=== PATIENT | male | born 1995 | race Caucasian/White ===

== ENCOUNTER 2016-04-20 12:38 | Emergency (ER) | payer OTHER ==
[~2016-04-20] VITALS: Ht 175.3 cm; Wt 55.0 kg
[2016-04-20 12:49] VITALS: BP 128/70; PULSE 94; RESP 18; TEMP 98; O2SAT 97
== END 2016-04-20 14:45 | disposition left against medical advice (07) ==
LOC: NED 12:38
DX: R68.89 Other general symptoms and signs (principal)
CPT/HCPCS: 99281

== ENCOUNTER 2016-05-31 14:19 | Emergency (ER) | payer OTHER ==
[~2016-05-31] VITALS: Ht 172.7 cm; Wt 82.0 kg
[2016-05-31 14:25] VITALS: BP 128/60; PULSE 62; RESP 18; TEMP 98.3; O2SAT 98
--- NOTE | 2016-05-31 14:55 | PD ---
HPI Chief Complaint: Suicide Ideation/Attempt Time Seen by Provider: 14:24 Travel History International Travel<30 days: No Contact w/Intl Traveler<30days: No Traveled to known affect area: No History of Present Illness HPI The patient is a 20-year-old male who presents emergency department via [facility] [place] [employer] as a Ellison act. According to the police affidavit they responded in reference to the patient who is making suicidal threats, however, when they arrived the patient states he would "kill anyone "came into the area. The police affidavit states that the patient apparently had a knife earlier that was removed by people on scene. The patient denies any suicidal or homicidal ideation. The patient does have a history of bipolar affective disorder for which she takes medications, states he took his medicines this morning. The patient denies any hallucinations, delusions, alcohol use, or illicit drug use. Patient denies any suicidal or homicidal ideation. The patient is requesting to have the Ellison act lifted so he can leave. PFSH Past Medical History ADHD: No Blood Disorders: No Bipolar Disorder: Yes Weight (Kg): uk Cancer: No Cardiovascular Problems: No Diabetes: No Diminished Hearing: No Headaches: No Psychiatric: Yes ([employer] POLAR) Immunizations Current: No Migraines: No Seizures: No Thyroid Disease: No Ulcer: No Past Surgical History Appendectomy: No Cholecystectomy: No Other Surgery: No Social History Alcohol Use: No Tobacco Use: Yes (1.5 PPD) Substance Use: Yes (MARIJUANA) Allergies-Medications (Allergen,Severity, Reaction): Coded Allergies: Seafood (Verified Allergy, Unknown, 08/28/13) Uncoded Allergies: Fish (Adverse Reaction, Intermediate, Hives ,Short of breath, 06/28/13) Reported Meds & Prescriptions Reported Meds & Active Scripts Active No Active Prescriptions or Reported Medications Review of Systems Except as stated in HPI: all other systems reviewed are Neg Cardiovascular: No: Chest Pain or Discomfort Respiratory: No: Shortness of Breath Gastrointestinal: No: Nausea, Vomiting, Abdominal Pain Neurologic: No: Dizziness Psychiatric: Positive: Suicidal Ideations (according to the police, patient denies), Mood Disorder (history of bipolar affective disorder), Homicidal Ideation (according to police the patient may, that he would "kill anyone ", but patient denies), No: Substance Abuse Physical Exam Narrative GENERAL: Awake, alert, somewhat angry 20-year-old male who appears his stated age and is in no acute respiratory distress. SKIN: Warm and dry. HEAD: Atraumatic. Normocephalic. EYES: Pupils equal and round. Pupils are 4 mm bilateral and reactive. ENT: No nasal bleeding or discharge. Mucous membranes pink and moist. NECK: Trachea midline. No JVD. CARDIOVASCULAR: Regular rate and rhythm. No murmur appreciated. RESPIRATORY: No accessory muscle use. Clear to auscultation. Breath sounds equal bilaterally. GASTROINTESTINAL: Abdomen soft, non-tender, nondistended. No rebound tenderness. MUSCULOSKELETAL: No obvious deformities. No clubbing. No cyanosis. No edema. NEUROLOGICAL: Awake and alert. No obvious cranial nerve deficits. Motor grossly within normal limits. Normal speech. PSYCHIATRIC: The patient is angry, and using profanity towards nursing staff and security personnel. Data Data Orders Complete Blood Count With Diff (05/31/16 14:30) Comprehensive Metabolic Panel (05/31/16 14:30) Psych Screen (05/31/16 14:30) Drug Screen, Random Urine (05/31/16 14:30) Alcohol (Ethanol) (05/31/16 14:30) Lorazepam Inj (Ativan Inj) (05/31/16 15:45) Haloperidol Inj (Haldol Inj) (05/31/16 15:45) Restraints Violent (05/31/16 15:36) Haloperidol Inj (Haldol Inj) (05/31/16 15:38) Lorazepam Inj (Ativan Inj) (05/31/16 15:38) Diphenhydramine Inj (Benadryl Inj) (05/31/16 16:00) Labs Laboratory Tests Test 05/31/16 05/31/16 14:40 15:00 White Blood Count 7.3 TH/MM3 Red Blood Count 5.04 MIL/MM3 Hemoglobin 15.8 GM/DL Hematocrit 45.3 % Mean Corpuscular Volume 89.8 FL Mean Corpuscular Hemoglobin 31.3 PG Mean Corpuscular Hemoglobin 34.8 % Concent Red Cell Distribution Width 13.8 % Platelet Count 192 TH/MM3 Mean Platelet Volume 8.8 FL Neutrophils (%) (Auto) 57.3 % Lymphocytes (%) (Auto) 31.7 % Monocytes (%) (Auto) 8.3 % Eosinophils (%) (Auto) 2.0 % Basophils (%) (Auto) 0.7 % Neutrophils # (Auto) 4.2 TH/MM3 Lymphocytes # (Auto) 2.3 TH/MM3 Monocytes # (Auto) 0.6 TH/MM3 Eosinophils # (Auto) 0.1 TH/MM3 Basophils # (Auto) 0.0 TH/MM3 CBC Comment DIFF FINAL Differential Comment Sodium Level 142 MEQ/L Potassium Level 3.9 MEQ/L Chloride Level 106 MEQ/L Carbon Dioxide Level 27.9 MEQ/L Anion Gap 8 MEQ/L Blood Urea Nitrogen 9 MG/DL Creatinine 0.89 MG/DL Estimat Glomerular Filtration 109 ML/MIN Rate Random Glucose 86 MG/DL Calcium Level 8.9 MG/DL Total Bilirubin 0.3 MG/DL Aspartate Amino Transf 33 U/L (AST/SGOT) Alanine Aminotransferase 96 U/L (ALT/SGPT) Alkaline Phosphatase 83 U/L Total Protein 7.5 GM/DL Albumin 4.1 GM/DL Ethyl Alcohol Level LESS THAN 3 MG/DL Urine Opiates Screen NEG Urine Barbiturates Screen NEG Urine Amphetamines Screen NEG Urine Benzodiazepines Screen NEG Urine Cocaine Screen NEG Urine Cannabinoids Screen POS MDM Medical Decision Making Medical Screen Exam Complete: Yes Emergency Medical Condition: Yes Medical Record Reviewed: Yes Interpretation(s) Laboratory Tests Test 05/31/16 05/31/16 14:40 15:00 White Blood Count 7.3 TH/MM3 Red Blood Count 5.04 MIL/MM3 Hemoglobin 15.8 GM/DL Hematocrit 45.3 % Mean Corpuscular Volume 89.8 FL Mean Corpuscular Hemoglobin 31.3 PG Mean Corpuscular Hemoglobin 34.8 % Concent Red Cell Distribution Width 13.8 % Platelet Count 192 TH/MM3 Mean Platelet Volume 8.8 FL Neutrophils (%) (Auto) 57.3 % Lymphocytes (%) (Auto) 31.7 % Monocytes (%) (Auto) 8.3 % Eosinophils (%) (Auto) 2.0 % Basophils (%) (Auto) 0.7 % Neutrophils # (Auto) 4.2 TH/MM3 Lymphocytes # (Auto) 2.3 TH/MM3 Monocytes # (Auto) 0.6 TH/MM3 Eosinophils # (Auto) 0.1 TH/MM3 Basophils # (Auto) 0.0 TH/MM3 CBC Comment DIFF FINAL Differential Comment Sodium Level 142 MEQ/L Potassium Level 3.9 MEQ/L Chloride Level 106 MEQ/L Carbon Dioxide Level 27.9 MEQ/L Anion Gap 8 MEQ/L Blood Urea Nitrogen 9 MG/DL Creatinine 0.89 MG/DL Estimat Glomerular Filtration 109 ML/MIN Rate Random Glucose 86 MG/DL Calcium Level 8.9 MG/DL Total Bilirubin 0.3 MG/DL Aspartate Amino Transf 33 U/L (AST/SGOT) Alanine Aminotransferase 96 U/L (ALT/SGPT) Alkaline Phosphatase 83 U/L Total Protein 7.5 GM/DL Albumin 4.1 GM/DL Ethyl Alcohol Level LESS THAN 3 MG/DL Urine Opiates Screen NEG Urine Barbiturates Screen NEG Urine Amphetamines Screen NEG Urine Benzodiazepines Screen NEG Urine Cocaine Screen NEG Urine Cannabinoids Screen POS Differential Diagnosis Differential diagnosis includes Ellison act, oppositional fine disorder, mood disorder NOS, bipolar affective disorder, substance induced mood disorder. Narrative Course Labs were drawn and sent. Psychiatric evaluation was ordered. Labs are unremarkable. Tox screen is positive for cannabinoids. The patient became aggressive with staff, was using profanity, and punching the wall. We allowed the patient to make a phone call, he stated he wanted to call his precision instrument maker, however, did not make a phone call. The patient once again became aggressive, therefore, was placed in leather restraints as he was a danger to himself and others. The patient was administered Ativan 2 mg IM, Haldol 5 g IM, Benadryl 50 mg IM. Patient is medically cleared to be evaluated by psychiatry. Disposition as per psych. Diagnosis Primary Impression: Mood disorder Scripts No Active Prescriptions or Reported Meds Condition: Stable Brent Bray MD May 31, 2016 14:55
[2016-05-31 15:02] LABS: AUTOMATED NEUTROPHIL # 4.2 TH/MM3 (1.8-7.7); BASOPHIL % 0.7 % (0.0-2.0); EOSINOPHIL # 0.1 TH/MM3 (0-0.4); HEMATOCRIT 45.3 % (39.0-51.0); HEMO FLAGS DIFF FINAL; LYMPH % 31.7 % (9.0-44.0); LYMPHOCYTE # 2.3 TH/MM3 (1.0-4.8); MEAN CELL VOLUME 89.8 FL (80.0-100.0); MEAN CORPUSCULAR HEMOGLOBIN 31.3 PG (27.0-34.0); MEAN CORPUSCULAR HGB CONC 34.8 % (32.0-36.0); MONO % 8.3 % (0.0-8.0); NEUT % 57.3 % (16.0-70.0); PLATELET COUNT 192 TH/MM3 (150-450); RED BLOOD COUNT 5.04 MIL/MM3 (4.50-5.90); RED CELL DISTRIBUTION WIDTH 13.8 % (11.6-17.2); WHITE BLOOD COUNT 7.3 TH/MM3 (4.0-11.0)
[2016-05-31 15:24] LABS: ANION GAP 8 MEQ/L (5-15); AST (GOT) 33 U/L (15-39); BICARBONATE 27.9 MEQ/L (21.0-32.0); BLOOD UREA NITROGEN 9 MG/DL (7-18); CHLORIDE 106 MEQ/L (98-107); GLOMERULAR FILTRATION RATE 109 ML/MIN (>89); POTASSIUM 3.9 MEQ/L (3.5-5.1); SODIUM (NA) 142 MEQ/L (136-145)
[2016-05-31 15:27] LABS: ALKALINE PHOSPHATASE 83 U/L (45-117); ALT (GPT) 96 U/L (9-52); TOTAL BILIRUBIN ADULT 0.3 MG/DL (0.2-1.0)
[2016-05-31] MEDS ORDERED: HALOPERIDOL LACTATE 5 MG/ML AMP ONE (15:38)
[2016-05-31] MEDS ORDERED: LORazepam 2 MG/ML VIAL ONE (15:38)
[2016-05-31] MEDS ORDERED: LORazepam 2 MG/ML VIAL IM ONE (15:45)
[2016-05-31] MEDS ORDERED: HALOPERIDOL LACTATE 5 MG/ML AMP IM ONE (15:45)
[2016-05-31] MEDS ORDERED: diphenhydrAMINE HCL 50 MG/ML VIAL IV PUSH ONE (16:00)
[2016-05-31 16:13] LABS: AMPHETAMINE, URINE NEG (NEG); BARBITURATES, URINE NEG (NEG); COCAINE, URINE NEG (NEG)
[2016-05-31] MEDS ORDERED: CELE20TA PO (21:06)
[2016-05-31] MEDS ORDERED: RISP1 PO (21:06)
[2016-05-31 21:15] VITALS: BP 112/56; PULSE 51; RESP 18; O2SAT 98
[2016-05-31 23:01] VITALS: RESP 18
[2016-06-01 02:17] VITALS: BP 112/57; PULSE 50; RESP 18; TEMP 97.5; O2SAT 98
== END 2016-06-01 03:21 ==
LOC: NEPA 14:19 → NEPJ 06-01 03:21
DX: F39 Unspecified mood [affective] disorder (principal); F17.200 Nicotine dependence, unspecified, uncomplicated; Z86.59 Personal history of other mental and behavioral disorders
CPT/HCPCS: 80053; 80307; 85025; 96372; 96374; 99285; J1200; J1630; J2060; 80320